=== PATIENT | male | born 1990 | race Caucasian/White ===

== ENCOUNTER 2016-08-26 20:37 | Emergency (ER) | payer OTHER ==
[2016-08-26 20:49] VITALS: BP 140/92
--- NOTE | 2016-08-26 21:38 | RAD ---
Indication: Right hand pain 4 views of the right hand demonstrates a transverse fracture through the midshaft of the fourth metacarpal. Dorsal angulation of the apex is noted. IMPRESSION: Transverse fracture midshaft fourth metacarpal with dorsal angulation.
--- NOTE | 2016-08-26 21:49 | UC ---
Hand/Wrist HPI - HPI Summary HPI Summary: ABOUT 8:30 PM PT WAS CARING FOR A COW WHEN SHE TURNED AND KICKED HIM IN THE RIGHT HAND. THERE WAS OBVIOUS DEFORMITY AND PT PUSHED IT BACK INTO PLACE. NO BREAK IN THE SKIN. NO NUMBNESS. - History Of Current Complaint Chief Complaint: UCUpperExtremity Stated Complaint: POSSIBLE BROKEN HAND Time Seen by Provider: 08/26/16 21:44 Hx Obtained From: Patient Onset/Duration: Sudden Onset, Lasting Hours, Still Present Severity Initially: Moderate Severity Currently: Moderate Pain Intensity: 5 Pain Scale Used: 0-10 Numeric Character Of Pain: Aching Aggravating Factor(s): Movement Alleviating: Rest, Ice Associated Signs And Symptoms: Positive: Swelling. Negative: Numbness/Tingling Related History: Dominant Hand Right - Allergies/Home Medications Allergies/Adverse Reactions: Allergies Allergy/AdvReac Type Severity Reaction Status Date / Time No Known Allergies Allergy Verified 08/26/16 20:48 Home Medications: Home Medications clonazePAM TAB(*) [Klonopin TAB(*)] 0.5 mg PO TID PRN 08/26/16 [History Confirmed 08/26/16] PMH/Surg Hx/FS Hx/Imm Hx Previously Healthy: Yes - Surgical History Surgical History: Yes Surgery Procedure, Year, and Place: wisdom teeth - Family History Known Family History: Positive: Hypertension - Social History Alcohol Use: Weekly Substance Use Type: None Smoking Status (MU): Never Smoked Tobacco Review of Systems Constitutional: Negative Skin: Negative Respiratory: Negative Cardiovascular: Negative Gastrointestinal: Negative Musculoskeletal: Arthralgia, Decreased ROM, Edema All Other Systems Reviewed And Are Negative: Yes Physical Exam Triage Information Reviewed: Yes Appearance: Well-Appearing, No Pain Distress, Well-Nourished Vital Signs: Initial Vital Signs Temp 98.7 F 08/26/16 20:44 Pulse 87 08/26/16 20:44 Resp 16 08/26/16 20:44 BP 140/92 08/26/16 20:44 Pulse Ox 100 08/26/16 20:44 Vital Signs Reviewed: Yes Eyes: Positive: Conjunctiva Clear ENT: Positive: Hearing grossly normal Neck: Positive: Supple Respiratory: Positive: No respiratory distress, No accessory muscle use Cardiovascular: Positive: Pulses Normal Abdomen Description: Positive: Soft Musculoskeletal: Positive: ROM Limited @ - RIGHT HAND, Edema @ - RIGHT HAND, Other: - TTP AND OBVIOUS DEFORMITY RIGHT HAND OVERLYING 4TH METACARPAL Neurological: Positive: Alert Psychological: Positive: Age Appropriate Behavior Skin: Negative: rashes Diagnostics - Radiology RIGIHT HAND XRAY Xray Interpretation: Positive (See Comments) - Transverse fracture midshaft fourth metacarpal with dorsal angulation. Radiology Interpretation Completed By: Radiologist Hand/Wrist Course/Dx - Differential Dx/Diagnosis Provider Diagnoses: Transverse fracture midshaft RIGHT fourth metacarpal with dorsal angulation. - Physician Notifications Discussed Patient Care With: Davon Haddad - AGREE WITH ULNAR GUTTER AND OFFICE F /U TOMORROW Time Discussed With Above Provider: 22:00 Discharge - Discharge Plan Condition: Stable Disposition: HOME Prescriptions: Hydrocodone-Acetaminophen [Lorcet 5-325 mg] 1 tab PO QID PRN #20 tab MDD 4 PRN Reason: Pain Patient Education Materials: Hand Fracture (ED) Forms: *Work Release Referrals: Davon Haddad MD [Medical Doctor] - 1 Day Additional Instructions: KEEP THE SPLINT ON UNTIL SEEN BY ORTHO TOMORROW. CALL DR. HADDAD'S OFFICE FIRST THING TOMORROW MORNING FOR AN APPT TO BE SEEN TOMORROW BY HER OR DR. CANTU. I SPOKE WITH DR. JOAN ARTHUR AND SHE IS AWARE OF YOUR CASE AND EXPECTING YOU TO CALL.
[2016-08-26] MEDS ORDERED: HYDROcodone/ACETAMIN 5-325 MG* 1 TAB PO ONE (22:19)
--- NOTE | 2016-08-28 11:35 | HP ---
PREOPERATIVE HISTORY AND PHYSICAL: DATE OF SURGERY/ADMISSION: 09/01/16 ATTENDING SURGEON: Deidre Camacho MD PROCEDURE: Closed reduction and percutaneous pinning of right fourth metacarpal. CHIEF COMPLAINT: Right hand injury. HISTORY OF PRESENT ILLNESS: This is a 25-year-old male who sustained injury to his hand at work on 08/26/16. 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 The cow kic ked him in the hand. He was seen at [facility] Emergency Department and had x-rays which showed a displaced fourth metacarpal fracture. After evaluation by Dr. Camacho, he has consented to proceed with surgical intervention at this time in the form of a closed reduction and percutaneous p inning of the right fourth metacarpal. PAST MEDICAL HISTORY: Unremarkable. PAST SURGICAL HISTORY: [place] teeth extraction. MEDICATIONS: 1. Clonazepam 0.5 mg 1 tab p.r.n. sleep. 2. Ibuprofen 400 to 800 mg t.i.d. p.r.n. ALLERGIES: No known drug allergies. FAMILY MEDICAL HISTORY: Hypertension. 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 He denies tobacco use. He de nies recreational drug use. He does admit to social alcohol use. REVIEW OF SYSTEMS: General: Negative for fevers, chills, or night sweat. No known anesthesia prob lems. HEENT: Negative for headache, lightheadedness, or syncopal episodes. Integumentary: Negati ve for abrasions, lesions, or open wounds. Cardiothoracic: Negative for hypertension, chest pain, palpitations, or edema. Pulmonary: Negative for shortness of breath with exertion, chronic cough, COPD. GI: Negative for nausea, vomiting, diarrhea, constipation, or GERD. : Negative for noctur ia, urinary frequency, urgency, history of UTIs, or kidney problem. Musculoskeletal: Positive for current complaint. Negative for chronic or intermittent back pain or history of history of fracture s. Neurological: Negative for paresthesias, numbness, history of seizure, stroke, or epilepsy. Endo crine: Negative for diabetes or thyroid issues. Hematologic: Negative for easy bruising, anemia, excessive bleeding, or history of DVT. Infectious Disease: Negative for history of MRSA, hepatitis C or HIV. PHYSICAL EXAMINATION GENERAL: Well-developed, well-nourished 25-year-old male, in no acute distress. VITAL SIGNS: Height 5 feet 11 inches, weight 208 pounds. Blood pressure 112/76. HEENT: Normocephalic, atraumatic. Pupils are equal, round, and reactive to light and accommodation . Extraocular movements are intact. Throat is clear. NECK: Supple. No palpable lymph nodes. PULMONARY: Lungs are clear to auscultation bilaterally. No wheezes, rales, or rhonchi. CARDIOVASCULAR: Regular rate and rhythm. S1, S2. No murmurs, rubs, or gallops. No edema. ABDOMEN: Positive bowel sounds. Soft, nontender. NEUROLOGIC: Alert and oriented x3. Cranial nerves II through XII are intact. Sensation is intact t o light touch. MUSCULOSKELETAL: On examination of the patient's right hand, he has an obvious deformity of the fou rth metacarpal with prominence of the distal portion of the shaft and an angular deformity at the mi d shaft. He can flex and extend his fingers well without rotational deformities. Skin is intact. Neurovascular function is intact. DIAGNOSTIC STUDIES/LAB DATA: X-rays of the right hand AP, lateral, and oblique show a displaced fr acture of the right fourth metacarpal. IMPRESSION: Right hand fourth metacarpal fracture, displaced. PLAN: The patient is scheduled to undergo a closed reduction and percutaneous pinning of the right fourth metacarpal with Dr. Camacho on 09/01/16. He will return to the office 10 to 14 days postop for followup and suture removal. He has a prescription for Vicodin as was prescribed by the urgent car e and should he need more for postoperative pain, it will be prescribed at that time. BEATRICE GEE [id number]/[facility] #: [id number]
== END 2016-08-26 22:40 | disposition home or self-care (01) ==
LOC: UCEAST 20:37
DX: S62.324A Displaced fracture of shaft of fourth metacarpal bone, right hand, initial encounter for closed fracture (principal); W55.22XA Struck by cow, initial encounter
CPT/HCPCS: 99212; G0463

== ENCOUNTER 2016-09-01 12:15 | Day surgery (SDC) | payer OTHER ==
--- NOTE | 2016-08-28 11:35 | HP ---
AMENDED REPORT TO CORRECT ACCOUNT NUMBER PREOPERATIVE HISTORY AND PHYSICAL: DATE OF SURGERY/ADMISSION: 09/01/16 [facility] ATTENDING SURGEON: Deidre Camacho MD (DICTATED BY BEATRICE GEE) PROCEDURE: Closed reduction and percutaneous pinning of right fourth metacarpal. CHIEF COMPLAINT: Right hand injury. HISTORY OF PRESENT ILLNESS: This is a 25-year-old male who sustained injury to his hand at work on 08/26/16. 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 The cow kicked him in the hand. He was seen at [facility] Emergency Department and had x-rays which showed a displaced fourth metacarpal fracture. After evaluation by Dr. Camacho, he has consented to proceed with surgical intervention at this time in the form of a closed reduction and percutaneous pinning of the right fourth metacarpal. PAST MEDICAL HISTORY: Unremarkable. PAST SURGICAL HISTORY: [place] teeth extraction. MEDICATIONS: 1. Clonazepam 0.5 mg 1 tab p.r.n. sleep. 2. Ibuprofen 400 to 800 mg t.i.d. p.r.n. ALLERGIES: No known drug allergies. FAMILY MEDICAL HISTORY: Hypertension. 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 He denies tobacco use. He denies recreational drug use. He does admit to social alcohol use. REVIEW OF SYSTEMS: General: Negative for fevers, chills, or night sweat. No known anesthesia problems. HEENT: Negative for headache, lightheadedness, or syncopal episodes. Integumentary: Negative for abrasions, lesions, or open wounds. Cardiothoracic: Negative for hypertension, chest pain, palpitations, or edema. Pulmonary: Negative for shortness of breath with exertion, chronic cough, COPD. GI: Negative for nausea, vomiting, diarrhea, constipation, or GERD. : Negative for nocturia, urinary frequency, urgency, history of UTIs, or kidney problem. Musculoskeletal: Positive for current complaint. Negative for chronic or intermittent back pain or history of history of fractures. Neurological: Negative for paresthesias, numbness, history of seizure, stroke, or epilepsy. Endocrine: Negative for diabetes or thyroid issues. Hematologic: Negative for easy bruising, anemia, excessive bleeding, or history of DVT. Infectious Disease: Negative for history of MRSA, hepatitis C or HIV. PHYSICAL EXAMINATION GENERAL: Well-developed, well-nourished 25-year-old male, in no acute distress. VITAL SIGNS: Height 5 feet 11 inches, weight 208 pounds. Blood pressure 112/ 76. HEENT: Normocephalic, atraumatic. Pupils are equal, round, and reactive to light and accommodation. Extraocular movements are intact. Throat is clear. NECK: Supple. No palpable lymph nodes. PULMONARY: Lungs are clear to auscultation bilaterally. No wheezes, rales, or rhonchi. CARDIOVASCULAR: Regular rate and rhythm. S1, S2. No murmurs, rubs, or gallops. No edema. ABDOMEN: Positive bowel sounds. Soft, nontender. NEUROLOGIC: Alert and oriented x3. Cranial nerves II through XII are intact. Sensation is intact to light touch. MUSCULOSKELETAL: On examination of the patient's right hand, he has an obvious deformity of the fourth metacarpal with prominence of the distal portion of the shaft and an angular deformity at the mid shaft. He can flex and extend his fingers well without rotational deformities. Skin is intact. Neurovascular function is intact. DIAGNOSTIC STUDIES/LAB DATA: X-rays of the right hand AP, lateral, and oblique show a displaced fracture of the right fourth metacarpal. IMPRESSION: Right hand fourth metacarpal fracture, displaced. PLAN: The patient is scheduled to undergo a closed reduction and percutaneous pinning of the right fourth metacarpal with Dr. Camacho on 09/01/16. He will return to the office 10 to 14 days postop for followup and suture removal. He has a prescription for Vicodin as was prescribed by the urgent care and should he need more for postoperative pain, it will be prescribed at that time. BEATRICE GEE [id number]/[facility] #: [id number] JEFF
[~2016-09-01 12:15] MED LIST: Buffered Lidocaine 0.9% SYRIN* 5 ML/SYR SYRINGE INTRADERM ONE
[2016-09-01] MEDS ORDERED: Buffered Lidocaine 0.9% SYRIN* 5 ML/SYR SYRINGE ONE (12:34)
[2016-09-01] MEDS ORDERED: ceFAZolin 2 GM PREMIX(*) 2 GM/50 ML BAG IVPB ONE (12:34)
[2016-09-01] MEDS ORDERED: Lidocaine 1% INJ* 10 MG/ML 30 ML SDV ONE (13:18)
[2016-09-01] MEDS ORDERED: fentaNYL* 50 MCG/ML 2 ML VIAL (100 MCG VIAL) ONE (13:49)
[2016-09-01] MEDS ORDERED: Midazolam* 1 MG/ML 2 ML VIAL (2 MG) ONE (13:50)
[2016-09-01] MEDS ORDERED: Lidocaine 2% PF * 5 ML VIAL ONE (14:03)
[2016-09-01] MEDS ORDERED: Propofol* 10 MG/ML 20 ML BTL IV PUSH ONE (14:03)
[2016-09-01 14:23] VITALS: BP 114/62
--- NOTE | 2016-09-02 03:45 | OP ---
DATE OF OPERATION: 09/01/16 [facility] DATE OF : 89 SURGEON: Dr. Camacho. GREEN INSPECTOR: BEATRICE Govea. ANESTHESIOLOGIST: Alonzo Nathan DO ANESTHESIA: Local, MAC. PRE-OP DIAGNOSIS: Right ring finger metacarpal fracture. POST-OP DIAGNOSIS: Right ring finger metacarpal fracture. OPERATIVE PROCEDURE: Close reduction and percutaneous pinning of the right ring finger metacarpal fracture. ESTIMATED BLOOD LOSS: Zero. TOURNIQUET TIME: None. INDICATION: Magalis is a 25-year-old male who injured his right hand at work. He was kicked by a cow. He suffered a fracture of the mid aspect of the midshaft of his fourth metacarpal. It is displaced. He presents for closed reduction and pinning. DESCRIPTION OF PROCEDURE: The patient was brought to the operating room, was given a sedation anesthetic and a local infiltration of 10 cc of 1% plain lidocaine. Skin of his right hand and forearm was prepped and draped in the usual sterile fashion. The fracture was reduced with traction and manipulation. Then one 0.045- inch K-wire was driven through the distal fragment down the shaft across the fracture site and into the proximal fragment. The position of the hardware and fracture fragment was checked on the C-arm in the AP and lateral views and found to be anatomic. Clinically, the finger was well aligned. The pin was bent and cut and then dressed with Xeroform, 4x4, Webril, and an ulnar gutter splint. The patient tolerated the procedure well and was brought to the recovery room in good condition. [id number]/[facility] #: [id number] [facility]
--- NOTE | 2016-09-02 10:20 | RAD ---
INDICATION: Right hand trauma COMPARISONS: August 26, 2016 TECHNIQUE: Fluoroscopy was provided for a surgical procedure. Total fluoroscopy time is: 56 seconds FINDINGS: Spot images demonstrate percutaneous fixation of the fourth metacarpal IMPRESSION: FLUOROSCOPY WAS PROVIDED FOR A SURGICAL PROCEDURE CPT II Codes: 6045F
== END 2016-09-01 14:33 | disposition home or self-care (01) ==
LOC: OREAST 12:15
PROVIDERS: ATTEND Orthopaedic Surgery
DX: S62.324A Displaced fracture of shaft of fourth metacarpal bone, right hand, initial encounter for closed fracture (principal); W55.22XA Struck by cow, initial encounter; Y99.0 Civilian activity done for income or pay; Y92.214 College as the place of occurrence of the external cause
CPT/HCPCS: 76000; C1776; J0690; J2001; J2250; J2704; J3010

== ENCOUNTER 2017-01-07 08:36 | Emergency (ER) | payer BC, OTHER ==
[2017-01-07 08:51] VITALS: BP 134/79
--- NOTE | 2017-01-07 10:31 | UC ---
Hand/Wrist HPI - HPI Summary HPI Summary: 26 yo male with right wrist pain x 3 weeks s/p fall also complains of sore throat x 5 days no f/c coworker dxed with mono over a month ago - History Of Current Complaint Chief Complaint: UCGeneralIllness Stated Complaint: SORE THROAT/ WRIST INJURY Time Seen by Provider: 01/07/17 08:58 Hx Obtained From: Patient Onset/Duration: Sudden Onset, Lasting Weeks Severity Initially: Moderate Severity Currently: Mild Pain Intensity: 3 Pain Scale Used: 0-10 Numeric Character Of Pain: Dull, Aching Aggravating Factor(s): Movement Alleviating Factor(s): Rest Associated Signs And Symptoms: Positive: Swelling Related History: Dominant Hand Right - Allergies/Home Medications Allergies/Adverse Reactions: Allergies Allergy/AdvReac Type Severity Reaction Status Date / Time No Known Allergies Allergy Verified 01/07/17 08:45 PMH/Surg Hx/FS Hx/Imm Hx Previously Healthy: Yes - Surgical History Surgical History: Yes Surgery Procedure, Year, and Place: WISDOM TEETH 2008 DR BAINS - Family History Known Family History: Positive: Hypertension - Social History Alcohol Use: Weekly Alcohol Amount: 6 DRINKS PER WEEK Substance Use Type: None Smoking Status (MU): Never Smoked Tobacco Have You Smoked in the Last Year: No Review of Systems Constitutional: Fatigue Skin: Negative Eyes: Negative ENT: Sore Throat Respiratory: Negative Cardiovascular: Negative Gastrointestinal: Negative Genitourinary: Negative Motor: Negative Neurovascular: Negative Musculoskeletal: Arthralgia Neurological: Negative Psychological: Negative Is Patient Immunocompromised?: No All Other Systems Reviewed And Are Negative: Yes Physical Exam Triage Information Reviewed: Yes Appearance: Well-Appearing, No Pain Distress, Well-Nourished Vital Signs: Initial Vital Signs Temp 97.9 F 01/07/17 08:46 Pulse 74 01/07/17 08:46 Resp 16 01/07/17 08:46 BP 134/79 01/07/17 08:46 Pulse Ox 100 01/07/17 08:46 Eyes: Positive: Conjunctiva Clear ENT: Positive: Hearing grossly normal, TMs normal, Tonsillar swelling, Uvula midline. Negative: Nasal congestion, TM bulging, Trismus, Muffled voice, Hoarse voice, Dental tenderness, Sinus tenderness Neck: Positive: Supple, Nontender, Enlarged Nodes @ - min ant cerv adenopathy Respiratory: Positive: Lungs clear, Normal breath sounds, No respiratory distress Cardiovascular: Positive: RRR, No Murmur Abdomen Description: Positive: Nontender, No Organomegaly, Soft Musculoskeletal: Positive: ROM Intact, Edema @ - thenar eminence/no snuff box tenderness Neurological: Positive: Alert Psychological Exam: Normal Skin Exam: Normal Diagnostics - Laboratory Diagnostic Studies Completed/Ordered: Strep (-) - Radiology No standard instances Xray Interpretation: No Acute Changes Radiology Interpretation Completed By: Radiologist Hand/Wrist Course/Dx - Differential Dx/Diagnosis Provider Diagnoses: acute pharngitis. right wrist sprain ? triangular cartilege injury vs other Discharge - Discharge Plan Condition: Stable Disposition: HOME Patient Education Materials: Pharyngitis (ED), Wrist Sprain (ED) Referrals: Non Staff,Doctor [Primary Care Provider] - Additional Instructions: wear your wrist splint Call your orthopedist (Dr. Camacho) for follow up you may have injured your triangular cartilage you may also have a tendon of ligament issue advil or aleve if needed blood work for mono is pending
--- NOTE | 2017-01-07 10:41 | RAD ---
HISTORY: Right wrist injury COMPARISONS: October 14, 2016 VIEWS: 3, Frontal, lateral, and oblique views of the right wrist FINDINGS: BONE DENSITY: Normal. BONES: There is no displaced fracture. There is remote post traumatic change to the fourth metacarpal. JOINTS: There is no arthropathy. ALIGNMENT: There is no dislocation. SOFT TISSUES: Unremarkable. OTHER FINDINGS: None. IMPRESSION: NO ACUTE OSSEOUS INJURY. IF SYMPTOMS PERSIST, RECOMMEND REPEAT IMAGING.
[2017-01-07 11:01] LABS: EBV Response YES
[2017-01-07 16:34] LABS: Hematocrit 44 % (42-52); Hemoglobin 15.2 g/dl (14.0-18.0); Mean Corpuscular HGB Conc 35 g/dl (31-36); Mean Corpuscular Hemoglobin 30 pg (27-31); Mean Corpuscular Volume 86 fL (80-94); Mean Platelet Volume 9 um3 (7.4-10.4); Red Blood Count 5.13 10^6/ul (4.0-5.4); Red Cell Distribution Width 13 % (10.5-15); White Blood Count 5.4 10^3/ul (3.5-10.8)
[2017-01-07 18:34] LABS: Mono Internal Control QC Line Present
[2017-01-09 14:15] LABS: EBV Capsid Ag IgG Ab Positive (Negative); EBV Capsid Ag IgM Ab Negative (Negative)
--- NOTE | 2017-01-10 08:06 | UC ---
Progress - Progress Note Progress Note: Testing shows past mono, but it is not a recent infection. PLease advise.
== END 2017-01-07 10:52 | disposition home or self-care (01) ==
LOC: UCEAST 08:36
DX: J02.9 Acute pharyngitis, unspecified (principal); S69.91XA Unspecified injury of right wrist, hand and finger(s), initial encounter; W19.XXXA Unspecified fall, initial encounter; Y93.9 Activity, unspecified; Y92.9 Unspecified place or not applicable; Y99.9 Unspecified external cause status
CPT/HCPCS: 36415; 85025; 86308; 86664; 86665; 87651; 99211; G0463